=== PATIENT | male | born 2000 | race Caucasian/White ===

== ENCOUNTER 2024-07-23 11:18 | Emergency (ER) | payer MEDICAID, OTHER ==
[~2024-07-23] VITALS: Ht 167.6 cm; Wt 75.0 kg
[2024-07-23 11:38] VITALS: BP 138/83; PULSE 68; RESP 18; TEMP 98.4; O2SAT 99
[2024-07-23] MEDS ORDERED: PRED20TA PO (12:47)
[2024-07-23] MEDS: dexamethasone sod phosphate 10mg/ml inj PO STA (13:09)
[2024-07-23] MEDS: diphenhydrAMINE 50 mg/ml inj IM ONE (13:14)
[2024-07-23] MEDS: famotidine 20mg tablet PO ONE (13:14)
== END 2024-07-23 13:24 | disposition home or self-care (01) ==
LOC: ER 11:19
DX: T78.40XA Allergy, unspecified, initial encounter (principal); Z88.0 Allergy status to penicillin; X58.XXXA Exposure to other specified factors, initial encounter
CPT/HCPCS: 96372; 99283; J1100; J1200